=== PATIENT | female | born 1990 | race African-American/Black ===

== ENCOUNTER 2019-11-10 18:25 | Emergency (ER) | payer OTHER, SELFPAY ==
[2019-11-10 18:31] VITALS: BP 126/69; PULSE 85; RESP 16; TEMP 37.3; O2SAT 100
--- NOTE | 2019-11-10 18:35 | ED.EAR ---
HPI - Ear Problem General Chief complaint: Ear Stated complaint: EAR CLOGGED [id number] Time Seen by Provider: 11/10/19 18:34 Source: patient Mode of arrival: ambulatory Limitations: no limitations History of Present Illness HPI Narrative: A 29 y/o female presents to the ED with c/o her right ear being clogged. Pt states that her right ear started to clog 1 week ago and has been constant since. She notes that she was seen at an urgent care and was given Debrox ear drops. Pt adds that the Debrox did not help, so she decided to come to the ED. She denies ear drainage, otalgia, fever, rhinorrhea, and sore throat. MD Complaint: other (right ear clogged) Location: right ear Duration: constant Relieving factors: nothing Discharge from ear: Reports no Associated symptoms ear: other (none) Treatment prior to arrival: eardrops (Debrox) Related Data Allergies Allergy/AdvReac Type Severity Reaction Status Date / Time No Known Allergies Allergy Verified 11/10/19 18:36 Review of Systems Review of Systems: All systems reviewed & are unremarkable except as noted in HPI and below Constitutional: Constitutional: Denies fever(s) ENT: Denies ear discharge, Denies otalgia, Denies nasal discharge, Denies sore throat and Reports other (right ear clogged) FORMERLY [facility], [facility] Past Medical History Medical History (Updated 11/10/19 @ 18:54 by Richard Hale DO) Healthy adult Surgical History Surgical History (Updated 11/10/19 @ 18:35 by Meghna Murillo) No pertinent past surgical history Social History Social History (Updated 11/10/19 @ 18:35 by Meghna Murillo) Smoking status: Unknown if ever smoked Exam Narrative: Exam Narrative: APPEARANCE: No acute distress, nontoxic, resting in bed HEENT: Normocephalic, atraumatic, left TM is normal appearance, the left TM is not visualized secondary to cerumen impaction, nares patent oromucosa moist RESPIRATORY: No respiratory distress MUSCULOSKELETAl: Moves all extremities. NEURO: Awake and alert. Following commands, speech normal, no focal deficits SKIN:: Warm, dry. Normal Color PSYCHIATRIC: Normal affect/mood Course Course Emergency Course: Patient's right ear irrigated by nursing staff with removal of cerumen. Following this her exam the patient TM is now fully visualized and normal in appearance Discussed with patient results of workup and diagnosis. Discussed need for follow-up with primary care, proper use of medication, and reasons to return to the emergency department. Patient understands and agrees to current treatment plan Vital Signs Vital signs: Vital Signs Temperature 99.1 F 11/10/19 18:31 Pulse Rate 85 11/10/19 18:31 Respiratory Rate 16 11/10/19 18:31 Blood Pressure 126/69 11/10/19 18:31 Pulse Oximetry 100 11/10/19 18:31 Temperature 99.1 F 11/10/19 18:31 Pulse Rate 85 11/10/19 18:31 Respiratory Rate 16 11/10/19 18:31 Blood Pressure 126/69 11/10/19 18:31 Pulse Oximetry 100 11/10/19 18:31 Medical Decision Making Vital Signs Vital Signs: Vital Signs Temperature 99.1 F 11/10/19 18:31 Pulse Rate 85 11/10/19 18:31 Respiratory Rate 16 11/10/19 18:31 Blood Pressure 126/69 11/10/19 18:31 Pulse Oximetry 100 11/10/19 18:31 Temperature 99.1 F 11/10/19 18:31 Pulse Rate 85 11/10/19 18:31 Respiratory Rate 16 11/10/19 18:31 Blood Pressure 126/69 11/10/19 18:31 Pulse Oximetry 100 11/10/19 18:31 Discharge Plan Discharge Clinical Impression: Impacted cerumen, right ear Patient Disposition: Home, Self-Care Condition: Stable Instructions: Antibiotic Form, Cerumen Impaction (ED) Additional Instructions: Return for ear pain fever or any other symptoms of concern Follow-up/Referrals: Dm Cancino MD [Physician] - (Follow-up in 1-2 days for further on-call physician treatment and evaluation) PHYSICIAN,DESIGN MANAGER [Primary Care Provider] - Time of Disposition: 18:54
--- NOTE | 2019-11-10 18:54 | PC.NURSE ---
ER provider ordered elephant ear irrigation system to be used on patient. Wax and yellow fluid came out with irrigation. Pt felt relief of pressure. ER provider to bedside after and observed clearing
== END 2019-11-10 19:04 | disposition home or self-care (01) ==
PROVIDERS: Emergency Provider Emergency Medicine
DX: H61.21 Impacted cerumen, right ear (principal)
CPT/HCPCS: 69209; 99282

== ENCOUNTER 2021-10-02 14:32 | Emergency (ER) | payer MEDICAID, SELFPAY ==
[2021-10-02] VITALS (14 sets, daily range): BP systolic 97–111; BP diastolic 60–76; PULSE 67–87; RESP 10–22; TEMP 36.8; O2SAT 100
--- NOTE | ~2021-10-02 | XR_ITS ---
XR chest 1V portable DATE: 10/02/2021 16:45 INDICATION: Dizziness TECHNIQUE: Portable AP chest on 10/02/2021 at 1642 hours COMPARISON: None FINDINGS: Normal heart size. No hilar or mediastinal enlargement. No pulmonary infiltrate or consol idation, pulmonary vascular congestion or pleural effusion or pneumothorax. IMPRESSION: No active cardiopulmonary disease Reviewed, dictated and finalized at location B. ER GOODS REPAIRER
--- NOTE | ~2021-10-02 | US_ITS ---
EXAMINATION: US OB <=14 wk fetus w TV DATE: 10/02/2021 17:50 INDICATION: Positive test. Establish dating during first trimester . TECHNIQUE: Real-time pelvic ultrasound utilizing both a transvaginal and transabdominal probe was pe rformed. The interpreting radiologist was not present for the study. COMPARISON: None. FINDINGS: The uterus measures 9.6 x 4.8 x 6.9 cm. There is an intrauterine gestational sac with 4 mm yolk sac but no discernible pole. The mean sac diameter of 2.0 cm which correlates with an estimated ges tational age of 6 weeks and 6 days. 7 x 7 x 6 mm hypoechoic likely subchorionic hematoma along the le ft side of the gestational sac. The right ovary measures 3.2 x 1.8 x 1.9 cm. The left ovary measures 4.4 x 2.6 x 2.9 cm. 2.4 cm hypoe choic likely corpus luteum cyst in the left ovary. There is a small amount of anechoic free fluid in the pelvis. IMPRESSION: 1. 2 cm gestational sac with yolk sac but no discernible pole which is suspicious but not diagn ostic for failure. Consider follow-up with serial beta-hCG levels and/or short interval fol low-up ultrasound. 2. Gestational age by ultrasound based upon mean sac diameter of 6 weeks 6 day(s) +/- 4 day(s) with ultrasound estimated date of delivery (RAUL) of 05/22/2022. Reviewed, dictated and finalized at location A. IONARY BOILER FIREMAN IMPRESSION: 1. 2 cm gestational sac with yolk sac but no discernible pole which is good spicious but not diagnostic for failure. Consider follow-up with seri al beta-hCG levels and/or short interval follow-up ultrasound. 2. Gestational age by ultrasound based upon mean sac diameter of 6 weeks 6 day (s) +/- 4 day(s) with ultrasound estimated date of delivery (RAUL) of 05/22/2022.
--- NOTE | ~2021-10-02 | CT_ITS ---
EXAMINATION: CT brain wo con DATE: 10/02/2021 17:20 INDICATION: New onset headaches TECHNIQUE: Computed tomography (CT) of the head was performed without intravenous contrast. Sagittal and coronal reconstructions were performed. The mA was adjusted according to patient size. Iterative reconstruction technique was employed. The dose-length product was 605.33 mGy-cm. COMPARISON: None FINDINGS: No acute intracranial hemorrhage, acute infarction or abnormal extra axial fluid collection. Ventricl es are normal and symmetric. No mass/mass effect. The orbits, paranasal sinuses and mastoid air cells are normal. IMPRESSION: 1. Normal head CT. Reviewed, dictated and finalized at location A. PHERE ARCHITECT IMPRESSION: 1. Normal head CT.
--- NOTE | 2021-10-02 16:17 | ECG_ITS ---
Measurements Intervals [place] Rate: 72 P: 9 MI: 161 QRS: 6 QRSD: 90 T: 34 QT: 365 QTc: 400 Interpretive Statements SINUS RHYTHM BASELINE ARTIFACT- II, III, AVR, AVF, V1, V3-V6 NORMAL ECG Electronically Signed On 10-02-2021 20:16:08 RENAL DIALYSIS TECHNICIAN by Yovany Serna D.O.
[2021-10-02] MEDS: SODIUM CHLORIDE 0.9% IV 1,000 ML 999 ML IV CONT (16:53)
[2021-10-02 16:55] LABS: Basophils Percent Auto 0.6 % (0.2-1.2); Eosinophils Absolute Auto 0.1 K/mm3 (0-0.3); Hematocrit 33.9 % (37.0-47.0); Immature Granulocyte Absolute 0.02 K/mm3 (0.00-0.031); Immature Granulocyte Percent A 0.3 % (0-0.5); Lymphocytes Absolute Auto 2.06 K/mm3 (0.9-3.2); Lymphocytes Percent Auto 29.8 % (18.3-44.2); Mean Corpuscular HGB Conc 32.4 g/dl (32-36); Mean Corpuscular Hemoglobin 27.1 pg (26-34); Mean Corpuscular Volume 83.5 fl (80-100); Mean Platelet Volume 9.7 fl (7.4-10.4); Monocytes Absolute Auto 0.5 K/mm3 (0.1-0.6); Monocytes Percent Auto 7.1 % (2.6-8.5); Neutrophils Absolute Auto 4.2 K/mm3 (1.3-6.7); Neutrophils Percent Auto 61.2 % (45.5-73.1); Platelet Count Result 248 k/mm3 (150-375); Red Blood Count 4.06 M/mm3 (4.2-5.4); Red Cell Distribution Width 13.2 % (11.5-14.5); White Blood Count 6.9 K/mm3 (4.5-10.0)
--- NOTE | 2021-10-02 16:59 | ED.DIZZY ---
HPI - Dizziness General Chief Complaint: Dizziness Stated Complaint: dizzy, headache, blurry vision Time Seen by Provider: 10/02/21 16:14 Source: patient Mode of arrival: ambulatory Limitations: language barrier (Patient's is interpreting, which she prefers) History of Present Illness HPI Narrative: This is a 31-year-old female that presents to the emergency department with new onset headaches. Reports over the last week she has noted some headaches associated with blurry vision. Reports no previous history of headaches. She also has been feeling palpitations. Reports she thinks she might be . Her last menstrual period was August 18. Denies any current headache. Denies fever, chest pain, shortness of breath, vomiting, dysuria or vaginal bleeding. Related Data Allergies Allergy/AdvReac Type Severity Reaction Status Date / Time No Known Allergies Allergy Verified 10/02/21 15:59 Review of Systems Review of Systems: CONSTITUTIONAL: Denies fever EYES: Reports visual changes CARDIOVASCULAR: Reports palpitations. Denies chest pain RESPIRATORY: Denies dyspnea. GASTROINTESTINAL: Denies nausea, vomiting, or diarrhea. GENITOURINARY: Denies dysuria NEUROLOGIC: Denies current headache, numbness, or weakness. All systems reviewed & are unremarkable except as noted in HPI and below PMFSH Past Medical History Medical History (Updated 10/02/21 @ 20:34 by Farrah Rider PA-C) Healthy adult Surgical History Surgical History (Updated 11/10/19 @ 18:35 by Meghna Murillo) No pertinent past surgical history Social History Social History (Updated 10/02/21 @ 17:02 by Farrah Rider PA-C) Smoking status: Never smoker Exam Narrative: GENERAL: Well-appearing, well-nourished, and in no acute distress. HEAD: Normocephalic, atraumatic. EYES: PERRLA and EOMI. ENT: Nares clear, no rhinorrhea or epistaxis. Mucous membranes moist. Oropharynx without tonsillar hypertrophy exudate or other lesions. Bilateral TMs pearly snider non-bulging NECK: Supple. No adenopathy or masses. CHEST: Clear to auscultation. No respiratory distress. No wheezes rales or rhonchi HEART: Regular rate and rhythm. No murmur heard. Normal peripheral pulses. ABDOMEN: Soft, nontender, nondistended, normal active bowel sounds. EXTREMITIES: Normal range of motion. No edema. SKIN: Warm, dry, no rash. NEURO: No focal deficits. Alert and oriented x3. Cranial nerves II through XII grossly intact PSYCH: Normal mood and affect Course Consultations Consultation #1: Spoke with Dr. Cherry about patient and workup. Would like repeat quant in 2 days. We will follow-up in clinic for further evaluation with repeat ultrasound. Would like type and screen ordered Vital Signs Vital signs: Vital Signs Temperature 98.2 F 10/02/21 14:48 Pulse Rate 81 10/02/21 14:48 Respiratory Rate 18 10/02/21 14:48 Blood Pressure 111/62 10/02/21 14:48 Pulse Oximetry 100 10/02/21 14:48 Temperature 98.2 F 10/02/21 14:48 Pulse Rate 67 10/02/21 18:45 Respiratory Rate 15 10/02/21 18:45 Blood Pressure 107/68 10/02/21 17:01 Pulse Oximetry 100 10/02/21 18:45 MDM - Dizziness MDM Narrative Medical decision making narrative: Patient presents to the emergency department with multiple complaints. Reporting recent headaches with visual changes. Reporting feelings of palpitations. Also reported possible . She is afebrile and nontoxic-appearing. Her vitals are stable. She is neurologically intact. CBC is without leukocytosis. Does show normocytic anemia with hemoglobin of 11. Metabolic panel without concerning findings. UA with evidence of infection. This will be sent for culture. Patient will be started on Macrobid. Bedside test is positive. Quantitative beta-hCG 51,895. Obstetric ultrasound shows a 2 cm gestational sac with yolk sac, but no discernible pole which is suspicious for failure. Chest x-ray withou
[2021-10-02 17:03] LABS: Alanine Aminotransferase 14 U/L (4-35); Albumin Level 4.1 g/dL (3.5-5.1); Alkaline Phosphatase 41 U/L (38-126); Anion Gap 7 mmol/L (8-16); Aspartate Amino Transferase 17 U/L (14-36); Bilirubin,Total 0.2 mg/dL (0.2-1.3); Blood Urea Nitrogen 10 mg/dL (7-17); Calcium 9.6 mg/dL (8.4-10.2); Carbon Dioxide 25 mmol/L (22-30); Chloride 106 mmol/L (98-107); Estimated CRCL calculation 84 ml/min; Estimated Glomerular Filt Rate > 60; Glucose 94 mg/dL (65-110); Sodium 138 mmol/L (137-145)
[2021-10-02 17:06] LABS: Add Urine Microscopic? YES; Appearance Urine Cloudy (Clear); Bacteria Urine Trace /hpf; Bilirubin Urine Negative (Negative); Blood Urine Negative (Negative); Color Urine Yellow (Yellow); Glucose Urine UA Negative (Negative); Ketones Urine Negative (Negative); Leukocyte Esterase Ur 2+ LEU/UL (Negative); Mucus Urine Heavy /lpf; Nitrate Urine Positive (Negative); Protein Urine 1+ mg/dL (Negative); Specific Grav Ur 1.027 (1.001-1.035); Squamous Epithelial Cell Urine Few /hpf (Few); WBC Urine 21-30 /hpf
--- NOTE | 2021-10-02 18:19 | PC.NURSE ---
Called lab and spoke to Alicia to add on Beta HCG Quant
== END 2021-10-02 20:58 | disposition home or self-care (01) ==
PROVIDERS: Physician Assistant; Emergency Provider Emergency Medicine
DX: O26.891 Other specified pregnancy related conditions, first trimester (principal); R51.9 Headache, unspecified; O23.11 Infections of bladder in pregnancy, first trimester; N30.00 Acute cystitis without hematuria; Z3A.01 Less than 8 weeks gestation of pregnancy
CPT/HCPCS: 36415; 70450; 71045; 76801; 76817; 80053; 81001; 81025; 84702; 85025; 86850; 86900; 86901; 87077; 87086; 87088; 87186; 93005; 96360; 96361; 99284; J7030

== ENCOUNTER 2021-10-12 16:02 | Outpatient (CLI) | payer MEDICAID, SELFPAY ==
--- NOTE | ~2021-10-12 | US_ITS ---
EXAMINATION: US OB <=14 wk fetus w TV DATE: 10/12/2021 16:55 INDICATION: Establish dating and viability of first trimester . TECHNIQUE: Real-time pelvic ultrasound utilizing both a transvaginal and transabdominal probe was pe rformed. The interpreting radiologist was not present for the study. COMPARISON: None. FINDINGS: The uterus measures 9.2 x 7.3 x 6.2 cm. There is an intrauterine gestational sac. A yolk sac and fet al pole are identified. The crown rump length measures 1.5 cm, which correlates with an estimated ges tational age of 7 weeks and 6 days. heart motion is identified measuring 165 beats per minute ( bpm) by M-mode Doppler. The right ovary measures 4.0 x 2.3 x 1.4 cm. The left ovary measures 3.8 x 3.8 x 2.8 cm. 1.5 cm left ovarian cyst. Vascular flow identified at both ovaries on color Doppler. Trace amount of free fluid i n the pelvis. IMPRESSION: 1. Single living fetus with heart rate of 165 bpm. 2. Gestational age by ultrasound of 7 weeks 6 day(s) +/- 5 day(s) with ultrasound estimated date of delivery (RAUL) of 05/25/2022. Reviewed, dictated and finalized at location A. TAL PRINTER OPERATOR IMPRESSION: 1. Single living fetus with heart rate of 165 bpm. 2. Gestational age by ultrasound of 7 weeks 6 day(s) +/- 5 day(s) with ultraso und estimated date of delivery (RAUL) of 05/25/2022.
== END 2021-10-12 16:03 | disposition home or self-care (01) ==
LOC: ANHIMG 16:11
PROVIDERS: Visit Provider Obstetrics & Gynecology
DX: O20.0 Threatened abortion (principal); Z3A.01 Less than 8 weeks gestation of pregnancy
CPT/HCPCS: 76801; 76817

== ENCOUNTER 2021-11-15 09:44 | Outpatient (CLI) | payer MEDICAID, SELFPAY ==
[2021-11-15 18:42] LABS: Basophils Percent Auto 0.5 % (0.2-1.2); Eosinophils Percent Auto 0.5 % (0-4.4); Hematocrit 33.2 % (37.0-47.0); Hemoglobin 10.9 g/dL (12.0-15.0); Immature Granulocyte Absolute 0.02 K/mm3 (0.00-0.031); Immature Granulocyte Percent A 0.3 % (0-0.5); Lymphocytes Absolute Auto 1.34 K/mm3 (0.9-3.2); Lymphocytes Percent Auto 21.5 % (18.3-44.2); Mean Corpuscular HGB Conc 32.8 g/dl (32-36); Mean Corpuscular Hemoglobin 27.9 pg (26-34); Mean Corpuscular Volume 84.9 fl (80-100); Mean Platelet Volume 10.2 fl (7.4-10.4); Monocytes Absolute Auto 0.3 K/mm3 (0.1-0.6); Monocytes Percent Auto 4.8 % (2.6-8.5); Neutrophils Absolute Auto 4.5 K/mm3 (1.3-6.7); Neutrophils Percent Auto 72.4 % (45.5-73.1); Platelet Count Result 264 k/mm3 (150-375); Red Blood Count 3.91 M/mm3 (4.2-5.4); Red Cell Distribution Width 12.8 % (11.5-14.5); White Blood Count 6.2 K/mm3 (4.5-10.0)
[2021-11-15 20:36] LABS: HIV 1/2 Ab P24 Ag Result Negative (Negative)
[2021-11-15 20:51] LABS: Hepatitis B Surface Antigen Negative (Negative); Rubella IgG Antibody 31.9 IU/ML
[2021-11-15 21:03] LABS: Hepatitis C Virus Antibody Negative (Negative)
[2021-11-16 11:12] LABS: Rapid Plasma Reagin Non-Reactive (NonReactive)
[2021-11-21 11:54] LABS: Hematocrit 34.8 % (35.0-45.0); Hemoglobin 11.2 g/dL (11.7-15.5); MCH 26.6 pg (27.0-33.0); MCV 82.7 fL (80.0-100.0); RDW 13.2 % (11.0-15.0); Red Blood Cell Count 4.21 Mill/uL (3.80-5.10)
== END 2021-11-15 09:45 | disposition home or self-care (01) ==
LOC: ANHBWCLAB 09:45
PROVIDERS: Visit Provider Obstetrics & Gynecology
DX: Z34.90 Encounter for supervision of normal pregnancy, unspecified, unspecified trimester (principal)
CPT/HCPCS: 36415; 83021; 84443; 85025; 86592; 86703; 86762; 86787; 86803; 87086; 87088; 87340; G0432

== ENCOUNTER 2022-03-08 15:45 | Outpatient (CLI) | payer OTHER, SELFPAY ==
[2022-03-08 16:59] LABS: Basophils Percent Auto 0.3 % (0.2-1.2); Eosinophils Absolute Auto 0.1 K/mm3 (0-0.3); Eosinophils Percent Auto 0.7 % (0-4.4); Hematocrit 28.9 % (37.0-47.0); Hemoglobin 9.1 g/dL (12.0-15.0); Immature Granulocyte Absolute 0.04 K/mm3 (0.00-0.031); Immature Granulocyte Percent A 0.5 % (0-0.5); Lymphocytes Absolute Auto 1.43 K/mm3 (0.9-3.2); Lymphocytes Percent Auto 19.6 % (18.3-44.2); Mean Corpuscular HGB Conc 31.5 g/dl (32-36); Mean Corpuscular Hemoglobin 26.9 pg (26-34); Mean Corpuscular Volume 85.5 fl (80-100); Monocytes Absolute Auto 0.5 K/mm3 (0.1-0.6); Monocytes Percent Auto 7.3 % (2.6-8.5); Neutrophils Absolute Auto 5.2 K/mm3 (1.3-6.7); Neutrophils Percent Auto 71.6 % (45.5-73.1); Platelet Count Result 221 k/mm3 (150-375); Red Blood Count 3.38 M/mm3 (4.2-5.4); White Blood Count 7.3 K/mm3 (4.5-10.0)
[2022-03-08 17:38] LABS: Glucose 1 Hour PP 50gm Dose 92 mg/dL
== END 2022-03-08 15:46 | disposition home or self-care (01) ==
LOC: ANHLAB 15:46
PROVIDERS: Visit Provider Student in an Organized Health Care Education/Training Program
DX: Z34.93 Encounter for supervision of normal pregnancy, unspecified, third trimester (principal); Z3A.32 32 weeks gestation of pregnancy
CPT/HCPCS: 36415; 82947; 85025

== ENCOUNTER 2022-04-05 15:23 | Outpatient (CLI) | payer OTHER, SELFPAY ==
[2022-04-05 15:43] LABS: Basophils Percent Auto 0.2 % (0.2-1.2); Eosinophils Percent Auto 0.5 % (0-4.4); Hematocrit 31.8 % (37.0-47.0); Hemoglobin 10.2 g/dL (12.0-15.0); Immature Granulocyte Absolute 0.09 K/mm3 (0.00-0.031); Immature Granulocyte Percent A 1.1 % (0-0.5); Lymphocytes Absolute Auto 0.92 K/mm3 (0.9-3.2); Lymphocytes Percent Auto 10.8 % (18.3-44.2); Mean Corpuscular HGB Conc 32.1 g/dl (32-36); Mean Corpuscular Hemoglobin 27.7 pg (26-34); Mean Corpuscular Volume 86.4 fl (80-100); Mean Platelet Volume 10.4 fl (7.4-10.4); Monocytes Absolute Auto 0.5 K/mm3 (0.1-0.6); Monocytes Percent Auto 5.3 % (2.6-8.5); Neutrophils Percent Auto 82.1 % (45.5-73.1); Platelet Count Result 210 k/mm3 (150-375); Red Blood Count 3.68 M/mm3 (4.2-5.4); Red Cell Distribution Width 14.6 % (11.5-14.5); White Blood Count 8.5 K/mm3 (4.5-10.0)
[2022-04-05 16:29] LABS: HIV 1/2 Ab P24 Ag Result Negative (Negative)
[2022-04-08 08:02] LABS: Rapid Plasma Reagin Non-Reactive (NonReactive)
== END 2022-04-05 15:24 | disposition home or self-care (01) ==
LOC: ANHLAB 15:25
PROVIDERS: Visit Provider Student in an Organized Health Care Education/Training Program
DX: Z34.91 Encounter for supervision of normal pregnancy, unspecified, first trimester (principal); Z3A.01 Less than 8 weeks gestation of pregnancy
CPT/HCPCS: 36415; 85025; 86592; 86703; G0432

== ENCOUNTER 2022-05-14 15:24 | Inpatient (IN) | payer OTHER, SELFPAY ==
--- NOTE | 2022-05-03 16:05 | PC.NURSE ---
Mom does speak some [place] and does understand most of what you tell her, interprets what she does not understands. If is not with patient -may need to use [employer]
[2022-05-14] VITALS (21 sets, daily range): BP systolic 83–132; BP diastolic 34–89; PULSE 57–96; RESP 18; TEMP 36.4–36.8; O2SAT 100; BMI 27.6
--- NOTE | 2022-05-14 15:54 | LDADM ---
This patient, Deena Grey, was admitted to Labor/Delivery/Recovery 107 on 05/14/22 at 15:24. Plans for labor, pain management and were discussed with patient. Patient/family oriented to hospital policies and general routines including ID bracelet, bed and alarms, visiting hours, pain management, procedures, bathroom and other care routines, personal items, smoking policy, room service/diet and guest tray routines, security routines, and visiting hours. Patient/Family are encouraged to report perceived risks to care and to ask questions if they do not understand what they are told or what they should do. See OBIX for further documentation.
[2022-05-14 16:17] LABS: Basophils Percent Auto 0.4 % (0.2-1.2); Eosinophils Percent Auto 0.4 % (0-4.4); Hematocrit 35.7 % (37.0-47.0); Hemoglobin 11.5 g/dL (12.0-15.0); Immature Granulocyte Absolute 0.04 K/mm3 (0.00-0.031); Immature Granulocyte Percent A 0.5 % (0-0.5); Lymphocytes Absolute Auto 1.65 K/mm3 (0.9-3.2); Lymphocytes Percent Auto 22.5 % (18.3-44.2); Mean Corpuscular HGB Conc 32.2 g/dl (32-36); Mean Corpuscular Hemoglobin 27.6 pg (26-34); Mean Corpuscular Volume 85.6 fl (80-100); Mean Platelet Volume 10.8 fl (7.4-10.4); Monocytes Absolute Auto 0.6 K/mm3 (0.1-0.6); Monocytes Percent Auto 7.9 % (2.6-8.5); Neutrophils Percent Auto 68.3 % (45.5-73.1); Platelet Count Result 233 k/mm3 (150-375); Red Blood Count 4.17 M/mm3 (4.2-5.4); Red Cell Distribution Width 14.5 % (11.5-14.5); White Blood Count 7.3 K/mm3 (4.5-10.0)
--- NOTE | 2022-05-14 16:37 | PM.IMHP ---
H&P: HPI History of Present Illness Date/Time: 05/14/22 16:37 Chief Complaint: Contractions Narrative: Patient is a 32-year-old LMP 08/18/2021 currently 38 weeks 3 days gestation with RAUL 05/25/2022. Patient is dated by LMP consistent with ultrasound on 10/02/2021 at 6 weeks gestation. Patient presents to labor and delivery with complaints of contractions. Patient reports onset of contractions at approximately 3:00 a.m. Reports irregular contractions occurring approximately every 5-10 minutes. Patient reports minimal vaginal bleeding. Denies any leakage of fluid. Reports decreased movement today. Upon presentation for a routine visit today, patient was noted to be 5 cm dilated. Patient was advised to proceed to labor and delivery for admission. Review of Systems Review of Systems: All systems reviewed & are unremarkable except as noted in HPI and below Constitutional: Constitutional: Reports as per HPI and Reports no additional constitutional complaints Eyes: Eyes: Reports as per HPI and Reports no additional eye complaints ENT: Reports system reviewed and no additional complaints, except as documented and Reports as per HPI Cardiovascular: Cardiovascular: Reports as per HPI and Reports no additional cardiovascular complaints Respiratory: Respiratory: Reports as per HPI and Reports no additional respiratory complaints Gastrointestinal: Gastrointestinal: Reports as per HPI and Reports no additional gastrointestinal complaints Genitourinary: Genitourinary: Reports no additional female genitourinary complaints and Reports as per HPI Musculoskeletal: Musculoskeletal: Reports no additional musculoskeletal complaints and Reports as per HPI Integumentary/Breasts: Skin/Breast: Reports system reviewed and no additional complaints, except as docu and Reports as per HPI Neurologic: Reports system reviewed and no additional complaints, except as documented and Reports as per HPI Psychiatric: Psychiatric: Reports no additional psychiatric complaints and Reports as per HPI Endocrine: Endocrine: Reports no additional endocrine complaints and Reports as per HPI Hematologic/Lymphatic: Hematologic/Lymphatic: Reports no additional hematologic/lymphatic complaints and Reports as per HPI Allergic/Immunologic: Allergic/Immunologic: Reports no additional allergic/immunologic complaints and Reports as per HPI PMFSH Past Medical History Medical History Vaginal delivery x1 Surgical History Surgical History No pertinent past surgical history Family History Family History Other No pertinent family history Social History Social History Smoking status: Never smoker Alcohol intake: never Substance use: never Spiritual care concerns: No Agree to blood products: Yes Meds Home Medications and Allergies Home Medications Medication Instructions Recorded Confirmed Type prenat.vits,david,eht-skbb-qnnhm 1 tablet PO DAILY 04/05/22 05/14/22 History ferrous sulfate 325 mg (65 mg See Rx Instructions .Route 04/08/22 05/14/22 Rx iron) tablet (FeroSul) .COMPLEX #90 tabs Allergies Allergy/AdvReac Type Severity Reaction Status Date / Time No Known Allergies Allergy Verified 05/14/22 15:01 Vital Signs Vital Signs - 24 hr 05/14/22 15:50 05/14/22 16:16 05/14/22 16:31 Temperature Pulse Rate 96 76 74 Blood Pressure 83/34 L 122/72 132/89 Oxygen Delivery 05/14/22 16:10 05/14/22 15:53 Temperature 36.4 C L Pulse Rate Blood Pressure Oxygen Delivery Room Air Exam Const: General: cooperative, healthy appearing, comfortable (however, appears uncomfortable during contractions) and no acute distress HENMT: Head: normal to inspection Ears: hearing grossly normal b
--- NOTE | 2022-05-14 16:43 | WPDHPUPDATE1 ---
History and Physical Update Update Date/Time: 05/14/22 16:43 History and Physical has been reviewed, including an updated exam of the patient. There are NO changes in the patient's condition. Risks, benefits, and alternatives have been discussed and questions answered. Patient agrees to proceed with procedure.
[2022-05-14 17:07] LABS: HIV 1/2 Ab P24 Ag Result Negative (Negative)
[2022-05-14] MEDS: LIDOCAINE HCL 1% PF 30 ML VIAL (19:05)
[2022-05-14] MEDS: OXYTOCIN 30 UNITS/NS 500 ML 30 UNITS/500 ML BAG 999 UNITS IV CONT (19:21)
--- NOTE | 2022-05-14 19:28 | PM.OBPRVD ---
OB - Delivery Note Procedure Delivery date: 05/14/22 Procedure: Patient is a 32-year-old now who presented to labor and delivery at 38 weeks 3 days gestation in active labor. Patient was approximately 5 cm dilated at time of presentation. Artificial rupture of membranes was performed at 4:29 p.m. Clear amniotic fluid was noted. Patient continued to make progressive cervical change and was found to be fully dilated at 6:50 p.m. Patient was encouraged to push and found to be pushing well. She was prepped and draped for delivery. At 7:01 p.m., patient delivered infant head atraumatically and without difficulty in NATHALIA presentation. Occiput restituted to direct occiput posterior. With subsequent push, infant's neck, shoulders, and rest of body delivered without difficulty. Terminal meconium was noted. was crying spontaneously. 's nose and mouth were suctioned with bulb suction and infant was placed on maternal abdomen where care was assumed by awaiting nursing staff. Delayed cord clamping was performed for approximately 60 seconds. The cord was clamped and cut. A segment of cord was collected for cord gases. Cord blood was collected. Placenta was delivered spontaneously and intact. Uterine fundus was noted to be firm with massage. On inspection, a left periurethral laceration was noted. Approximately 5 cc of 1% lidocaine was administered for local analgesia. This laceration was repaired with 3-0 Vicryl in usual fashion. Excellent hemostasis was noted. Estimated blood loss for entire delivery was 100 cc. The was a liveborn male infant, Apgars 8 and 9, weighing 7 lbs. 4 oz. Both mother and baby doing well at end of delivery. Delivery augmentation: Rupture of Membranes Delivery monitor: External FHT and External Uterine Route of delivery: Laceration Description: Periurethral (left) Delivery repair: vicryl (3-0) Specimen: Yes (cord blood and cord gases) Quantitative Blood Loss (ml): 100 Anesthesia type: None Disposition: Floor Complications: No immediate complications Baby Date of : 05/14/22 Time of : 19:01 Weeks of gestation at delivery: 38 (38.3) gender: Male Weight (pounds): 7 Weight (ounces): 4 presentation: vertex position: Left Occiput Anterior Placenta delivery description: Spontaneous Cord Vessel Description: 3 Vessels and Delayed Cord Clamping (x60s) score one minute: 8 score five minutes: 9 AMG Delivery Billing Delivery Delivery: Delivery Charge
[2022-05-14] MEDS: OXYTOCIN 30 UNITS/NS 500 ML 30 UNITS/500 ML BAG 125 UNITS IV CONT (20:49)
[2022-05-14] MEDS: WITCH HAZEL 40 PADS 1 PAD TOPICAL (21:57)
[2022-05-14] MEDS: BENZOCAINE 20% AER SPR (*SP) 56 GM CAN 1 SPRAY TOPICAL (21:57)
[2022-05-14] MEDS: ACETAMINOPHEN 325 MG TABLET 650 MG PO (21:58)
--- NOTE | 2022-05-14 22:02 | OBPPTRN ---
Patient transferred to post room #288 via w/c. Support person present. Oriented to unit, room, information board, rooming in, admission packet and security measures. Patient verbalizes understanding.
[2022-05-15] MEDS: IBUPROFEN 600 MG TABLET PO ×3 (00:03→19:25)
[2022-05-15 05:05] VITALS: BP 100/62; PULSE 66; RESP 16; TEMP 36.7; O2SAT 100
[2022-05-15 05:46] LABS: Hemoglobin 10.2 g/dL (12.0-15.0)
[2022-05-15 08:15] VITALS: BP 124/80; PULSE 70; RESP 16; TEMP 36.4; O2SAT 100
[2022-05-15 12:00] VITALS: BP 102/54; PULSE 80; RESP 16; TEMP 37; O2SAT 100
--- NOTE | 2022-05-15 13:45 | PM.OBPNVD ---
OB - PN: Subj Subjective Date/time seen: 05/15/22 0820 Patient doing well. Pain reasonably controlled medication. Minimal lochia. Ambulating without difficulty. Voiding well. OB - PN: Obj Data Labs CBC & Chem 7: 05/15/22 04:06 Labs: Laboratory Results - last 24 hr 05/14/22 05/14/22 05/14/22 15:51 15:51 17:03 WBC 7.3 RBC 4.17 L Hgb 11.5 L Hct 35.7 L MCV 85.6 MCH 27.6 MCHC 32.2 RDW 14.5 Plt Count 233 MPV 10.8 H Immature Gran % (Auto) 0.5 Neut % (Auto) 68.3 Lymph % (Auto) 22.5 [place] % (Auto) 7.9 Eos % (Auto) 0.4 Baso % (Auto) 0.4 Lymph # (Auto) 1.65 [place] # (Auto) 0.6 Eos # (Auto) 0.0 Baso # (Auto) 0.0 Abs Immat Gran (auto) 0.04 H Absolute Neuts (auto) 5.0 Absolute Nucleated RBC 0.0 Nucleated RBC % 0.0 HIV 1&2 Ab/P24 Ag 4thGn Negative Blood Type B Positive Antibody Screen Negative 05/15/22 04:06 WBC RBC Hgb 10.2 L Hct 32.0 L MCV MCH MCHC RDW Plt Count MPV Immature Gran % (Auto) Neut % (Auto) Lymph % (Auto) [place] % (Auto) Eos % (Auto) Baso % (Auto) Lymph # (Auto) [place] # (Auto) Eos # (Auto) Baso # (Auto) Abs Immat Gran (auto) Absolute Neuts (auto) Absolute Nucleated RBC Nucleated RBC % HIV 1&2 Ab/P24 Ag 4thGn Blood Type Antibody Screen OB - PN A/P Assessment and Plan (1) Normal spontaneous vaginal delivery: Code(s): O80 - Encounter for full-term uncomplicated delivery Status: Acute Assessment and Plan: PPD#1 doing well continue routine care dc home in stable condition emergency precautions reviewed f/u in office in 4-6 weeks Time Spent With Patient Time: Total time spent is greater than 50% in coordination of care (as documented) at patient's floor/unit and/or counseling patient: Review of Systems Review of Systems: All systems reviewed & are unremarkable except as noted in HPI and below Exam Const: General: cooperative, healthy appearing, comfortable and no acute distress GI: Inspection: non-distended GI Palp: Yes Soft to palpation and No Tenderness to palpation present (GI) Other: fundus firm below umbilicus Extrem: Right lower extremity: no edema Left lower extremity: no edema Other: no calf tenderness
--- NOTE | 2022-05-15 13:48 | PM.OBDSVD ---
DS: Admitting Diagnosis Discharge Date 05/15/22 Admitting Diagnosis IUP at 38w3d gestation Active labor DS: Discharge Diagnosis Discharge Diagnosis (1) Normal spontaneous vaginal delivery: Code(s): O80 - Encounter for full-term uncomplicated delivery Status: Acute OB - DS: Summary OB Procedures : None OB Procedures Intrapartum: Spontaneous Vag Delivery OB Procedures: : None Time Spent with Patient Time attestation: Total time spent providing and/or coordinating discharge services: DS: Data Data Completed and Pending Labs on day of discharge: Labs from last 24 hours 05/15/22 05/14/22 05/14/22 04:06 17:03 15:51 WBC RBC Hgb 10.2 L Hct 32.0 L MCV MCH MCHC RDW Plt Count MPV Immature Gran % (Auto) Neut % (Auto) Lymph % (Auto) [place] % (Auto) Eos % (Auto) Baso % (Auto) Lymph # (Auto) [place] # (Auto) Eos # (Auto) Baso # (Auto) Abs Immat Gran (auto) Absolute Neuts (auto) Absolute Nucleated RBC Nucleated RBC % RPR Pending HIV 1&2 Ab/P24 Ag 4thGn Blood Type B Positive Antibody Screen Negative 05/14/22 05/14/22 15:51 15:51 WBC 7.3 RBC 4.17 L Hgb 11.5 L Hct 35.7 L MCV 85.6 MCH 27.6 MCHC 32.2 RDW 14.5 Plt Count 233 MPV 10.8 H Immature Gran % (Auto) 0.5 Neut % (Auto) 68.3 Lymph % (Auto) 22.5 [place] % (Auto) 7.9 Eos % (Auto) 0.4 Baso % (Auto) 0.4 Lymph # (Auto) 1.65 [place] # (Auto) 0.6 Eos # (Auto) 0.0 Baso # (Auto) 0.0 Abs Immat Gran (auto) 0.04 H Absolute Neuts (auto) 5.0 Absolute Nucleated RBC 0.0 Nucleated RBC % 0.0 RPR HIV 1&2 Ab/P24 Ag 4thGn Negative Blood Type Antibody Screen Discharge Plan Discharge Attending physician on discharge: Roberta Kaye Discharging Clinician: Roberta Kaye Anticipated Discharge Date/Time: 05/15/22 13:50 Patient Disposition: Home, Self-Care Activity: as tolerated and pelvic rest Diet: regular Discharge Instructions: Call office ([phone]) to schedule a visit in 4-6 weeks. You may take Ibuprofen 600mg every 6 hours as needed for pain. Pain medication may make you constipated. It may be helpful to take an esmd-xbj-wpguajs stool softener, such as Colace and/or Senokot, along with the pain medication to help lessen constipation. Call office or go to ED for pain not controlled with medication, headache, chest pain, shortness of breath, fever, chills, persistent nausea or vomiting, severe abdominal pain, heavy vaginal bleeding >2 pads/hour, foul vaginal discharge or odor, or problems with your breasts. Patient Instructions: Antibiotic Form Stand Alone Forms: General Discharge Information Follow-up/Referrals: Roberta Kaye MD [Physician] - Discharge Medications: Continued prenat.vits,david,cos-rqrw-xijce Tablet 1 tablet PO DAILY Discontinued ferrous sulfate [FeroSul] 325 mg (65 mg iron) tablet See Rx Instructions .ROUTE .COMPLEX Qty: 90 0RF Dose Instruction: TAKE 1 TABLET BY MOUTH EVERY DAY Rx Instructions: TAKE 1 TABLET BY MOUTH EVERY DAY Date of admission: 05/14/22 15:24 Primary Care Provider: PHYSICIAN,PRINCIPAL ARCHAEOLOGIST Admitting Provider: Roberta Kaye Attending physician on admission: Roberta Kaye Condition: Stable
[2022-05-15 15:36] LABS: Rapid Plasma Reagin Non-Reactive (NonReactive)
[2022-05-15 19:25] VITALS: BP 110/70; PULSE 98; RESP 16; TEMP 36.5; O2SAT 100
[2022-05-16] MEDS: ACETAMINOPHEN 325 MG TABLET 650 MG PO (00:31)
[2022-05-16 08:00] VITALS: PULSE 77; RESP 18; O2SAT 99
[2022-05-16 08:30] VITALS: BP 105/68; PULSE 77; RESP 18; TEMP 37.2; O2SAT 99
[2022-05-16] MEDS: MULTIVIT/MIN/PREN/FOL AC/IRON TABLET 1 TAB PO (10:23)
[2022-05-16] MEDS: DOCUSATE SODIUM 100 MG CAPSULE PO (10:23)
[2022-05-16] MEDS: IBUPROFEN 600 MG TABLET PO (10:23)
--- NOTE | 2022-05-16 11:36 | PM.OBPNVD ---
OB - PN: Subj Subjective Date/time seen: 05/16/22 11:36 Patient doing well.? Pain reasonably controlled medication.? Minimal lochia.? Ambulating without difficulty.? Voiding well. OB - PN: Obj Data Labs CBC & Chem 7: 05/15/22 04:06 Labs: Laboratory Results - last 24 hr 05/14/22 15:51 RPR Non-reactive OB - PN A/P Assessment and Plan (1) Normal spontaneous vaginal delivery: Code(s): O80 - Encounter for full-term uncomplicated delivery Status: Acute Assessment and Plan: PPD#2 doing well continue routine care dc home in stable condition emergency precautions reviewed f/u in office in 4-6 weeks Time Spent With Patient Time: Total time spent is greater than 50% in coordination of care (as documented) at patient's floor/unit and/or counseling patient: Review of Systems Review of Systems: All systems reviewed & are unremarkable except as noted in HPI and below Exam Const: General: cooperative, healthy appearing, comfortable and no acute distress GI: Inspection: non-distended GI Palp: Yes Soft to palpation and No Tenderness to palpation present (GI) Other: fundus firm below umbilicus Extrem: Right lower extremity: no edema Left lower extremity: no edema Other: no calf tenderness
--- NOTE | 2022-05-16 13:51 | PC.NURSE ---
[phone] Introductions were made, then consulted with patient to assess needs related to . Mother led the conversation with her?plans to feed?her infant with formula and plans to bottle feed breast milk. Resources provided for inpatient and outpatient services using a resource guide and mom/baby guide. Mother voiced understanding of information. Parents requests assistance with some milk production questions and father of the baby assist with clearer communication. Mother states she has been attempting to breastfeed infant with a nipple shield at times, pumping rarely, and formula feeding her . Discussed care, usage of pumping 8 times in a 24 hour period with 1-2 times at night for good milk production. Mother states there's no pain with pumping but has not pumped or attempted to breastfeed for the last 3-4 feedings or through the night. Mother wanted a pump for at home pumping and RN assisted with a pump from [facility] to be billed by her insurance. Reviewed the basics of using the pump, mother states the flange on the pump was assessed earlier when the pump was initiated and the 24 mm flange doesn't hurt her while pumping. Mother plans to feed her attempting to breastfeed, pumping, supplementing to feed . Reminded parents to use good handwashing technique to prevent infection. Mother is feeding appropriately for growth of and understands stimulating to eat if needed. Infant has had appropriate feedings in the last 24 hours meets the outcomes for weight, output and jaundice at this time. Mother states she is confident to continue feeding her at home or when to call for assistance and denies any additional assistance or education at this time. Reinforced understanding of milk production, transition of milk, signs of adequate intake, prevention/relief of engorgement, responsive after visualizing feeding cues, the different methods of stimulating infant to breastfeed 2-3 hours after the start of the last feeding, community resources, medication information reviewed per [facility] and when to call a provider using the resource of the mom and baby guide/[facility] website. Mother voiced understanding of the education shared.
--- NOTE | 2022-05-16 14:12 | PC.NURSE ---
Patient viewed the discharge video Mother & Baby Care, The First Two Weeks . Patient was given the opportunity and encouraged to ask questions. Patient verbalized understanding of information shared and has been given the mother/baby guide for home reference.
--- NOTE | 2022-05-16 16:31 | PCCCNOTE ---
Per Care Coordination Note: Spoke with RN this morning regarding consult. Per Kavitha DUMONT with [facility] met with pt. and FOB/ today at bedside and completed a [place] medicaid application for baby grace Grey. However pt. has moved to [place], [place] and has been informed by Kavitha that she will need to eventually submit an application to [place] Medicaid if she has relocated to [place]. Pt. and FOB aware and agreeable. Spoke with Kavitha at [facility] who confirms above information and adds that baby was added to [place] Medicaid application. Pt. is aware that baby and her will need to follow up with Pediatricians and OB physicians in [place] if she wants to have follow up care that [place] Medicaid insurance cover . RN has provided information for pt. and baby to establish with providers in the [place] area. Spoke with FOB who reports this is their second child, 4 year old child at home. A basket was also provided to family to assist in care of infant. Pt. and FOB report they have all other necessary equipment for baby at home.
[2022-05-18 11:29] VITALS: BP 110/75; PULSE 77; RESP 20; TEMP 36.9; O2SAT 100
== END 2022-05-16 14:45 | disposition home or self-care (01) | DRG 560 ==
LOC: ANHLDR 15:28 → ANHOB2 22:12
PROVIDERS: Admitting Provider Student in an Organized Health Care Education/Training Program; Visit Provider Student in an Organized Health Care Education/Training Program
DX: O76 Abnormality in fetal heart rate and rhythm complicating labor and delivery (principal); O62.3 Precipitate labor; O77.0 Labor and delivery complicated by meconium in amniotic fluid; O71.82 Other specified trauma to perineum and vulva; Z3A.38 38 weeks gestation of pregnancy; Z37.0 Single live birth
CPT/HCPCS: 36415; 85014; 85018; 85025; 86592; 86703; 86850; 86900; 86901; A9270; G0432; J2590

== ENCOUNTER 2023-08-01 15:32 | Outpatient (CLI) | payer OTHER, SELFPAY ==
--- NOTE | ~2023-08-01 | US_ITS ---
EXAMINATION: US OB <=14 wk fetus w TV DATE: 08/01/2023 16:21 INDICATION: Inconclusive viability of the at the junction of the first and second tri mester. TECHNIQUE: Real-time pelvic ultrasound utilizing transabdominal probe was performed. The interpretin g radiologist was not present for the study. COMPARISON: None. FINDINGS: The uterus measures 13.9 x 6.9 x 10.4 cm. There is an intrauterine gestational sac. A yolk sac and f etal pole are identified. The crown rump length measures 8.1 cm, which correlates with an estimated g estational age of 14 weeks and 1 days. heart motion is identified measuring 150 beats per minut e (bpm) by M-mode Doppler. The right ovary measures 6.0 x 4.3 x 2.2 cm. With arterial and venous waveforms on color Doppler The left ovary is not visualized. There is no free fluid in the pelvis. IMPRESSION: 1. Single living fetus with heart rate of 150 bpm. 2. Gestational age by ultrasound of 14 weeks 1 day(s) +/- 1 week and 2 day(s) with ultrasound estima bridget date of delivery (RAUL) of 01/29/2024. Reviewed, dictated and finalized at location A. [facility] IMPRESSION: 1. Single living fetus with heart rate of 150 bpm. 2. Gestational age by ultrasound of 14 weeks 1 day(s) +/- 1 week and 2 day(s) with ultrasound estimated date of delivery (RAUL) of 01/29/2024.
== END 2023-08-01 15:33 | disposition home or self-care (01) ==
PROVIDERS: PCP Registered Nurse; Visit Provider Registered Nurse
DX: O36.80X0 Pregnancy with inconclusive fetal viability, not applicable or unspecified (principal)
CPT/HCPCS: 76801; 76817

== ENCOUNTER 2023-09-12 11:14 | Outpatient (CLI) | payer OTHER, SELFPAY ==
[2023-09-12 11:38] LABS: Hematocrit 33.1 % (37.0-47.0); Hemoglobin 10.6 g/dL (12.0-15.0); Mean Corpuscular Hemoglobin 28.3 pg (26-34); Mean Corpuscular Volume 88.3 fl (80-100); Mean Platelet Volume 9.4 fl (7.4-10.4); Platelet Count Result 233 k/mm3 (150-375); Red Blood Count 3.75 M/mm3 (4.2-5.4); Red Cell Distribution Width 13.1 % (11.5-14.5); White Blood Count 6.4 K/mm3 (4.5-10.0)
[2023-09-12 12:31] LABS: HIV 1/2 Ab P24 Ag Result Negative (Negative)
[2023-09-12 12:43] LABS: Hepatitis B Surface Antigen Negative (Negative); Rubella IgG Antibody 22.9 IU/ML
[2023-09-12 12:56] LABS: Hepatitis C Virus Antibody Negative (Negative)
[2023-09-15 14:31] LABS: Rapid Plasma Reagin Non-Reactive (NonReactive)
[2023-09-16 15:04] LABS: Hematocrit 33.6 % (35.0-45.0); Hemoglobin 10.6 g/dL (11.7-15.5); MCH 27.7 pg (27.0-33.0); RDW 12.8 % (11.0-15.0); Red Blood Cell Count 3.82 Mill/uL (3.80-5.10)
== END 2023-09-12 11:15 | disposition home or self-care (01) ==
LOC: ANHLAB 11:15
PROVIDERS: PCP Registered Nurse; Visit Provider Registered Nurse
DX: N91.2 Amenorrhea, unspecified (principal)
CPT/HCPCS: 36415; 83021; 84443; 85027; 86592; 86703; 86762; 86787; 86803; 86850; 86900; 86901; 87086; 87340; G0432

== ENCOUNTER 2023-11-07 09:08 | Outpatient (CLI) | payer OTHER, SELFPAY ==
[2023-11-07 10:56] LABS: Basophils Percent Auto 0.4 % (0.2-1.2); Eosinophils Absolute Auto 0.1 K/mm3 (0-0.3); Hematocrit 32.2 % (37.0-47.0); Hemoglobin 10.5 g/dL (12.0-15.0); Immature Granulocyte Absolute 0.13 K/mm3 (0.00-0.031); Immature Granulocyte Percent A 1.4 % (0-0.5); Lymphocytes Absolute Auto 1.51 K/mm3 (0.9-3.2); Lymphocytes Percent Auto 16.8 % (18.3-44.2); Mean Corpuscular HGB Conc 32.6 g/dl (32-36); Mean Corpuscular Hemoglobin 28.2 pg (26-34); Mean Corpuscular Volume 86.6 fl (80-100); Mean Platelet Volume 10.3 fl (7.4-10.4); Monocytes Absolute Auto 0.5 K/mm3 (0.1-0.6); Monocytes Percent Auto 5.5 % (2.6-8.5); Neutrophils Absolute Auto 6.7 K/mm3 (1.3-6.7); Neutrophils Percent Auto 74.9 % (45.5-73.1); Platelet Count Result 209 k/mm3 (150-375); Red Blood Count 3.72 M/mm3 (4.2-5.4); Red Cell Distribution Width 13.2 % (11.5-14.5)
[2023-11-07 11:12] LABS: Glucose 1 Hour PP 50gm Dose 107 mg/dL
== END 2023-11-07 09:09 | disposition home or self-care (01) ==
LOC: ANHLAB 09:09
PROVIDERS: PCP Registered Nurse; Visit Provider Nurse Practitioner Family
DX: Z34.82 Encounter for supervision of other normal pregnancy, second trimester (principal)
CPT/HCPCS: 36415; 82947; 85025

== ENCOUNTER 2023-12-15 11:37 | Outpatient (CLI) | payer OTHER, SELFPAY ==
[2023-12-15 12:00] LABS: Hematocrit 33.3 % (37.0-47.0); Hemoglobin 10.6 g/dL (12.0-15.0); Mean Corpuscular HGB Conc 31.8 g/dl (32-36); Mean Corpuscular Hemoglobin 27.9 pg (26-34); Mean Corpuscular Volume 87.6 fl (80-100); Mean Platelet Volume 10.4 fl (7.4-10.4); Platelet Count Result 203 k/mm3 (150-375); Red Cell Distribution Width 13.3 % (11.5-14.5); White Blood Count 7.4 K/mm3 (4.5-10.0)
[2023-12-15 13:06] LABS: HIV 1/2 Ab P24 Ag Result Negative (Negative)
[2023-12-15 14:29] LABS: Rapid Plasma Reagin Non-Reactive (NonReactive)
== END 2023-12-15 11:38 | disposition home or self-care (01) ==
LOC: ANHLAB 11:38
PROVIDERS: PCP Registered Nurse; Visit Provider Nurse Practitioner Family
DX: Z34.90 Encounter for supervision of normal pregnancy, unspecified, unspecified trimester (principal)
CPT/HCPCS: 36415; 85027; 86592; 86703; G0432

== ENCOUNTER 2024-01-21 07:31 | Inpatient (IN) | payer OTHER, SELFPAY ==
[2024-01-21] VITALS (26 sets, daily range): BP systolic 99–138; BP diastolic 48–93; PULSE 60–247; RESP 16–20; TEMP 36.1–37.4; O2SAT 99–100; BMI 36.8
[2024-01-21] MEDS: LACTATED RINGERS 1,000 ML 125 ML IV CONT (08:22)
[2024-01-21 08:32] LABS: Basophils Percent Auto 0.2 % (0.2-1.2); Eosinophils Percent Auto 0.3 % (0-4.4); Hematocrit 35.7 % (37.0-47.0); Hemoglobin 11.4 g/dL (12.0-15.0); Immature Granulocyte Absolute 0.07 K/mm3 (0.00-0.031); Immature Granulocyte Percent A 0.7 % (0-0.5); Lymphocytes Absolute Auto 1.67 K/mm3 (0.9-3.2); Lymphocytes Percent Auto 16.7 % (18.3-44.2); Mean Corpuscular HGB Conc 31.9 g/dl (32-36); Mean Corpuscular Hemoglobin 27.9 pg (26-34); Mean Corpuscular Volume 87.5 fl (80-100); Mean Platelet Volume 11.3 fl (7.4-10.4); Monocytes Absolute Auto 0.7 K/mm3 (0.1-0.6); Neutrophils Absolute Auto 7.5 K/mm3 (1.3-6.7); Neutrophils Percent Auto 75.1 % (45.5-73.1); Platelet Count Result 215 k/mm3 (150-375); Red Blood Count 4.08 M/mm3 (4.2-5.4); Red Cell Distribution Width 13.6 % (11.5-14.5)
--- NOTE | 2024-01-21 08:49 | LDADM ---
This patient, Deena Grey, was admitted to Labor/Delivery/Recovery 106 on 01/21/24 at 07:31. Plans for labor, pain management and were discussed with patient. Patient/family oriented to hospital policies and general routines including ID bracelet, bed and alarms, visiting hours, pain management, procedures, bathroom and other care routines, personal items, smoking policy, room service/diet and guest tray routines, security routines, and visiting hours. Patient/Family are encouraged to report perceived risks to care and to ask questions if they do not understand what they are told or what they should do. See OBIX for further documentation.
[2024-01-21 09:23] LABS: HIV 1/2 Ab P24 Ag Result Negative (Negative)
--- NOTE | 2024-01-21 10:33 | PM.IMHP ---
H&P: HPI History of Present Illness Date/Time: 01/21/24 10:33 Chief Complaint: contractions Narrative: patient was admitted in active labor she started having contractions at 1:30 a.m. cervix on admission 9 cm. course uncomplicated. Review of Systems Review of Systems: All systems reviewed & are unremarkable except as noted in HPI and below Constitutional: Constitutional: Reports no additional constitutional complaints and Denies headache(s) Eyes: Eyes: Denies spots in vision ENT: Reports system reviewed and no additional complaints, except as documented and Denies headache(s) Cardiovascular: Cardiovascular: Denies chest pain and Denies dyspnea Respiratory: Respiratory: Denies dyspnea Gastrointestinal: Gastrointestinal: Reports no additional gastrointestinal complaints Genitourinary: Genitourinary: Reports amenorrhea Musculoskeletal: Musculoskeletal: Reports no additional musculoskeletal complaints Integumentary/Breasts: Skin/Breast: Denies breast mass and Denies rash Neurologic: Denies headache(s) Psychiatric: Psychiatric: Reports no additional psychiatric complaints PMFSH Past Medical History Medical History Vaginal delivery x2 Surgical History Surgical History No pertinent past surgical history Family History Family History Other No pertinent family history Social History Social History Smoking status: Never smoker Second hand tobacco smoke exposure: No Alcohol intake: never Substance use: never Do You Feel Safe in your Home?: Yes Lack of Transportation: No Lack of Food: Never True Current Housing: I Have Housing Concerned About Future Housing: No Difficulty Paying Gas/Electric Bills: No Difficulty Paying for Meds: No Currently Unemployed: YES Education: Associate Degree Difficulty w/ Childcare or Family Care: No Spiritual care concerns: No Agree to blood products: Yes Meds Home Medications and Allergies Home Medications Medication Instructions Recorded Confirmed Type vitamin #56-iron 35 mg 1 cap PO DAILY #90 caps 07/17/23 01/21/24 Rx and 5 mg-folic acid 1 mg-dha capsule ferrous sulfate 325 mg (65 mg 325 mg PO BID 10/01/23 01/21/24 History iron) tablet Allergies Allergy/AdvReac Type Severity Reaction Status Date / Time No Known Allergies Allergy Verified 01/20/24 09:16 Vital Signs Vital Signs - 24 hr 01/21/24 08:41 01/21/24 08:32 01/21/24 08:45 Temperature Pulse Rate 137 H 95 Blood Pressure 128/76 119/75 Oxygen Delivery Room Air 01/21/24 08:30 01/21/24 09:00 01/21/24 09:15 Temperature 97.4 F L Pulse Rate 84 Blood Pressure 114/73 138/82 Oxygen Delivery 01/21/24 09:30 01/21/24 09:45 01/21/24 10:00 Temperature Pulse Rate 86 79 75 Blood Pressure 122/67 114/60 102/53 L Oxygen Delivery 01/21/24 10:15 01/21/24 10:30 Temperature Pulse Rate 74 85 Blood Pressure 99/52 L 114/53 L Oxygen Delivery Exam Const: General: no acute distress Eyes: General: appearance normal, both eyes and all related structures Resp: Effort & Inspection: normal respiratory effort Cardio: Rate: regular rate GI: Other: Gravid no fundal tenderness no right upper quadrant pain Skin: General skin exam: no rashes or lesions noted Neuro: Cognition (Neuro): normal cognition Extrem: General: normal to inspection Psych: Mental Status: mental status grossly normal H&P: Results Labs Labs: Short CBC 01/21/24 Range/Units 08:12 WBC 10.0 (4.5-10.0) K/mm3 Hgb 11.4 L (12.0-15.0) g/dL Hct 35.7 L (37.0-47.0) % Plt Count 215 (150-375) k/mm3 Assessment and Plan Assessment and plan (1) Active labor: Status: Acut
[2024-01-21] MEDS: OXYTOCIN 30 UNITS/NS 500 ML 30 UNITS/500 ML BAG 999 UNITS IV CONT (11:27)
--- NOTE | 2024-01-21 11:41 | PM.OBPRVD ---
OB - Vaginal Delivery Note Procedure Delivery date: 01/22/24 Induction method: None Delivery monitor: External FHT Route of delivery: Episiotomy description: None Specimen: No Quantitative Blood Loss (ml): 150 Anesthesia type: None Disposition: Floor Complications: No immediate complications Narrative: she was admitted in active labor. There is a question regarding presentation she had an ultrasound performed at the bedside confirmed vertex. She dilated to anterior lip. she had assisted rupture of membranes of clear fluid. She started pushing and delivered a male over intact perineum. There was a loose nuchal cord manually reduced.mild shoulder dystocia 30 sec relieved with modified zoya and suprapubic pressure. Infant was placed on maternal abdomen. Pitocin was started. Placenta was delivered spontaneously. Patient tolerated procedure well. Baby Date of : 01/21/24 Time of : 11:25 Weeks of gestation at delivery: 38 gender: Male Weight (pounds): 7 Weight (ounces): 14 presentation: vertex Placenta delivery description: Spontaneous Cord Vessel Description: 3 Vessels, Loose and Reduced ( Manually) score one minute: 8 score five minutes: 9
[2024-01-21] MEDS: IBUPROFEN 600 MG TABLET PO ×2 (11:51→19:33)
[2024-01-21] MEDS: ACETAMINOPHEN 325 MG TABLET 650 MG PO ×2 (11:51→19:32)
[2024-01-21] MEDS: OXYTOCIN 30 UNITS/NS 500 ML 30 UNITS/500 ML BAG 125 UNITS IV CONT (12:08)
[2024-01-21] MEDS: WITCH HAZEL 40 PADS 1 PAD TOPICAL (12:10)
[2024-01-21] MEDS: BENZOCAINE 20% AER SPR (*SP) 56 GM CAN 1 SPRAY TOPICAL (12:11)
--- NOTE | 2024-01-21 15:09 | OBPPTRN ---
1427 Patient transferred to post room #292 via W/C. Support person present. Oriented to unit, room, information board, rooming in, admission packet and security measures. Patient verbalizes understanding.
[2024-01-21 16:23] LABS: Rapid Plasma Reagin Non-Reactive (NonReactive)
--- NOTE | 2024-01-21 18:46 | PC.NURSE ---
1427 Prefers for Spouse to translate for her. So he did.
[2024-01-22 03:54] VITALS: BP 96/58; PULSE 77; RESP 16; TEMP 36.2; O2SAT 99
[2024-01-22 04:39] LABS: Hematocrit 28.7 % (37.0-47.0); Hemoglobin 9.3 g/dL (12.0-15.0)
[2024-01-22] MEDS: POLYSACCHARIDE IRON COMPLEX 150 MG CAPSULE PO ×2 (08:20→17:55)
[2024-01-22] MEDS: DOCUSATE SODIUM 100 MG CAPSULE PO ×2 (08:21→17:55)
[2024-01-22] MEDS: MULTIVIT/MIN/PREN/FOL AC/IRON TABLET 1 TAB PO (08:21)
--- NOTE | 2024-01-22 12:37 | P.PNOB_ITS ---
OB - PN: Subj Subjective Date/time seen: 01/22/24 12:37 Patient comments: pain well controlled, tolerating diet and other (Decreasing lochia.) baby status: doing well and nursing well [place] feeding status: exclusively breast feeding OB - PN: Obj Data Labs 01/22/24 03:59 Labs: Laboratory Results - last 24 hr 01/21/24 01/22/24 08:12 03:59 Hgb 9.3 L Hct 28.7 L RPR Non-reactive OB - PN A/P Assessment and Plan (1) Vaginal delivery: Code(s): O80 - Encounter for full-term uncomplicated delivery Status: Acute Plan day: 1 Plan: routine care Comments: Patient doing well. Time Spent With Patient Time: Total time spent is greater than 50% in coordination of care (as documented) at patient's floor/unit and/or counseling patient: Exam Psych: Affect: normal affect Other: Abd: fundus firm below umbilicus, nontender Ext: nontender
[2024-01-22 13:05] VITALS: BP 102/65; PULSE 81; RESP 16; TEMP 36.3; O2SAT 99
--- NOTE | 2024-01-22 14:25 | PC.NURSE ---
Breast pump provided due to maternal preference. Patient has visitors at this time and declined help using the pump. Instructed patient to call when she is ready to use the pump in order to make sure she is using it correctly and has the correct phalange size. Patient voiced understanding.
--- NOTE | 2024-01-22 14:52 | PC.NURSE ---
Report received this morning that mother is not pumping or putting to the breast until her milk comes in. has been bottle feeding since . This is mother's plan and this is what she has done with all of her children. Primary RN has educated mother on protecting her milk supply with or pumping and she has declined. Mother breastfed for the first feeding to get things going , then waits until the full milk to pump or breastfeed again.
[2024-01-22] MEDS: IBUPROFEN 600 MG TABLET PO (15:35)
[2024-01-22 20:00] VITALS: BP 112/71; PULSE 76; RESP 18; TEMP 36.4; O2SAT 100
[2024-01-23 09:20] VITALS: BP 113/77; PULSE 79; RESP 16; TEMP 36.6; O2SAT 100
[2024-01-23] MEDS: DOCUSATE SODIUM 100 MG CAPSULE PO (10:13)
[2024-01-23] MEDS: POLYSACCHARIDE IRON COMPLEX 150 MG CAPSULE PO (10:13)
[2024-01-23] MEDS: MULTIVIT/MIN/PREN/FOL AC/IRON TABLET 1 TAB PO (10:13)
--- NOTE | 2024-02-25 08:41 | PM.OBDSVD ---
DS: Admitting Diagnosis Discharge Date 01/23/24 Admitting Diagnosis labor DS: Discharge Diagnosis Discharge Diagnosis (1) Vaginal delivery: Code(s): O80 - Encounter for full-term uncomplicated delivery Status: Acute OB - DS: Summary Hospital Course Hospital Course: she was admitted for active labor. She had uncomplicated vaginal delivery. She did well . baby was doing well . She was discharged home on day 2. OB Procedures : Ultrasound OB Procedures Intrapartum: Spontaneous Vag Delivery OB Procedures: : None Peripartum Data Delivery Method: Natural Vaginal Episiotomy description: None complications: none Status at Discharge Functional status at discharge: independent ambulation Time Spent with Patient Time attestation: Total time spent providing and/or coordinating discharge services: Exam Const: General: cooperative Orientation/consciousness: oriented to person, oriented to place and oriented to time HENMT: Face/Nose/Sinus: Normal external nose present Eyes: General: appearance normal, both eyes and all related structures Resp: Effort & Inspection: normal respiratory effort GI: Inspection: normal to inspection Skin: General skin exam: normal color Neuro: General: oriented to person, oriented to place and oriented to time Extrem: General: normal to inspection and no calf tenderness Psych: Appearance: grossly normal Mental Status: mental status grossly normal Discharge Plan Discharge Attending physician on discharge: Mark Diggs Discharging Clinician: Mark Diggs Anticipated Discharge Date/Time: 01/23/24 10:22 Patient Disposition: Home, Self-Care Activity: may shower and pelvic rest Diet: regular Discharge Instructions: Education: Mom and Baby Guide Given to: Mother Follow-Up: Call your delivering provider's office for an appointment to be seen in: 4 Weeks Mom and baby should come to the [facility] for the follow-up appointment. Appointment Date/Time: January 24, 2024 at 8:00 am What to expect at your follow-up visit: Physical Assessment Call [phone] if you are unable to keep your appointment time. BREAST CARE: * Wear a snug supportive bra. * For engorgement discomfort: Breast Feeding: * Apply warm moist washcloths * Express milk as needed to relieve engorgement * Wear loose clothing Bottle Feeding: * May apply ice packs * For sore nipples: * Identify correct latch-on * Apply warm moist washcloths before and after nursing * Air dry nipples after nursing * May apply Lansinoh cream to nipples PERINEAL CARE: * Until bleeding stops, use your katelynn bottle after urinating * Change your pad frequently throughout the day * You may take sitz baths several times a day (fill your bathtub with warm water and soak for 20 minutes.) Do NOT bathe in the water * No tub baths until seen by your physician - You may shower ACTIVITY: * Rest as much as possible. * Do not exercise or lift anything heavier than your baby (such as laundry or other children.) * Avoid stairs or driving as much as possible. * Do not put anything into the vagina. No douching, tampons, or sexual activity until seen by physician. NOTIFY PHYSICIAN IF YOU HAVE ANY QUESTIONS OR IF ANY OF THE FOLLOWING SYMPTOMS OCCUR: * If your perineum becomes red, swollen, or more painful than what you have experienced in the hospital. * If your vaginal bleeding becomes foul smelling. * If your vaginal bleeding becomes more heavy than a period or if your bleeding changes from pink to bright red. However, you may pass an occasional walnut-sized clot once or twice for the first week . * If you experience a sharp, shooting pain in you calves. * If you discover a hard, reddened area on your breast or if you experience flu-like symptoms. DIET:
== END 2024-01-23 15:10 | disposition home or self-care (01) | DRG 560 ==
LOC: ANHLDR 07:52 → ANHOB2 14:45
PROVIDERS: Admitting Provider Obstetrics & Gynecology; PCP Registered Nurse; Visit Provider Obstetrics & Gynecology
DX: O69.81X0 Labor and delivery complicated by cord around neck, without compression, not applicable or unspecified (principal); O66.0 Obstructed labor due to shoulder dystocia; Z3A.38 38 weeks gestation of pregnancy; Z37.0 Single live birth
CPT/HCPCS: 36415; 85014; 85018; 85025; 86592; 86703; 86850; 86900; 86901; A9270; G0432; J2590; J7120